=== PATIENT | male | born 1960 | race Caucasian/White ===

== ENCOUNTER 2019-03-24 19:00 | Inpatient (IN) | payer MEDICAID ==
[~2019-03-24] VITALS: Ht 165.1 cm; Wt 80.7 kg
[2019-03-24 19:20] VITALS: BP 152/88
--- NOTE | 2019-03-24 19:35 | NUR ---
PT ARRVIED TO ED C/O URINARY FREQUNCY X 1 MONTH. PT STATES HE HAS LEG PAIN AND DESCRIBES IT CRAMPING FEELING. NO RESP DISTRESS NOTED. A & O X 4. SKIN IN DRY AND INTACT. PT STATES HES HOMELESS AND HE HASNT TAKEN ANY MEDICATION FOR HIS [place] HX IN OVER A YEAR. STEADY GAIT. DENIES ANY DYSURIA OR BLOOD IN URINE. BS WAS OVER 600 AND MD IS AWARE. VSS NKA. PMH: DM,HTN.
[2019-03-24] MEDS ORDERED: NACL 0.9% 1,000 ML IV SCH (19:48)
--- NOTE | 2019-03-24 20:11 | NUR ---
XR AT BEDSIDE.
--- NOTE | 2019-03-24 20:18 | NUR ---
Dr. Chappell examining patient.
[2019-03-24 20:29] LABS: BASOPHILS # (AUTO) 0.1 K/uL (0.00-0.22); EOSINOPHILS # (AUTO) 0.1 K/uL (0-0.4); EOSINOPHILS % (AUTO) 1.1 % (0.0-4.0); HEMATOCRIT 40.5 % (36-52); HEMOGLOBIN 13.3 g/dL (12.0-18.0); LYMPHOCYTES # (AUTO) 1.9 K/uL (2.0-11.5); LYMPHOCYTES % (AUTO) 37.7 % (20.5-51.1); MEAN CORPUSCULAR HEMOGLOBIN 29 pg (27-31); MEAN CORPUSCULAR HGB CONC 33 g/dL (33-37); MEAN CORPUSCULAR VOLUME 87.1 fL (80-94); MONOCYTES # (AUTO) 0.3 K/uL (0.8-1.0); MONOCYTES % (AUTO) 6.1 % (1.7-9.3); NEUTROPHILS # (AUTO) 2.8 K/uL (1.8-7.7); NEUTROPHILS % (AUTO) 54.1 % (42.2-75.2); PLATELET COUNT (AUTO) 225 K/uL (140-450); RED BLOOD CELL COUNT(AUTO) 4.65 MIL/uL (4.20-6.10); RED CELL DISTRIBUTION WIDTH 12.9 % (11.6-13.7); WHITE BLOOD COUNT (AUTO) 5.2 K/uL (4.8-10.8)
[2019-03-24] MEDS ORDERED: cefTRIAXone 1,000 MG VIAL ONE (21:04)
[2019-03-24 21:14] LABS: ALBUMIN 3.5 g/dL (3.4-5.0); ANION GAP 13.5 (8-16); CARBON DIOXIDE 24.6 mmol/L (21-32); CREATININE 1.4 mg/dL (0.7-1.3); POTASSIUM 4.1 mmol/L (3.5-5.1); TOTAL BILIRUBIN 0.4 mg/dL (0.0-1.0)
[2019-03-24] MEDS ORDERED: INSULIN REGULAR, HUMAN 100 UNIT/ML VIAL IV ONE (21:40)
[2019-03-24 21:57] LABS: APPEARANCE,URINE CLEAR (CLEAR); BILIRUBIN,URINE NEGATIVE (NEGATIVE); BLOOD, URINE NEGATIVE (NEGATIVE); COLOR,URINE YELLOW (YELLOW); LEUKOCYTE ESTERASE ,URINE NEGATIVE (NEGATIVE); NITRITE, URINE NEGATIVE (NEGATIVE); PH,URINE 5.5 (5.0-9.0); UGLUCOSE NEGATIVE (NEGATIVE)
[2019-03-24] MEDS: NACL 0.9% 1,000 ML IV SCH (22:09)
[2019-03-24] MEDS ORDERED: MORPHINE SULFATE 2 MG/ML SYR IVP PRN (22:10)
[2019-03-24] MEDS ORDERED: DOCUSATE SODIUM 100 MG GELCAP PO PRN (22:10)
[2019-03-24] MEDS ORDERED: LORazepam 2 MG/ML VIAL IM/IVP PRN (22:10)
[2019-03-24] MEDS ORDERED: ZOLPIDEM 5 MG TAB PO PRN (22:10)
[2019-03-24] MEDS ORDERED: ACETAMINOPHEN 325 MG TAB PO PRN (22:10)
[2019-03-24] MEDS ORDERED: ONDANSETRON 4 MG/2 ML VIAL IM/IVP PRN (22:10)
[2019-03-24] MEDS ORDERED: DEXTROSE 50% 50 ML SYR IVP PRN (22:25)
[2019-03-24 22:30] VITALS: BP 140/90
--- NOTE | 2019-03-24 22:30 | NUR ---
Patient will be admitted to care of DR. COLÓN. Admited to TELE. Will go to room 111B. Belongings list completed. Report to SHAVON JUAN.
--- NOTE | 2019-03-24 22:30 | NUR ---
RCIEVED PT FROM ER/ BLACK . AAOX4 , NID , IV SITE INTACT AND PATENT , WALK TO BED , C/O URINARY FREQUENCY AND THRIST AND LEG CRAMPS AND SLIGHTLY PAIN . PLAN OF CARE DISCUSSED AND VERBALIZE UNDERSTANDING - CALL LIGHT WITHIN REACH . FALL RISK - PUT ON SAFETY/FALL PRECAUTION PROTOCOL . URINAL PROVIDED . ADMISSION ASSESSMENT DONE . MRSA SPECIMEN COLLECTED AND SENT TO LAB. WILL CONT. TO MONITOR.
[2019-03-24 22:42] LABS: MAGNESIUM 1.7 mg/dL (1.8-2.4); PHOSPHORUS 3.2 mg/dL (2.5-4.9); THYROID STIMULATING HORMONE 0.68 uIU/mL (0.34-3.74)
[2019-03-24 22:51] LABS: BARBITURATE, URINE NEG. ng/ml (NEG <=200); BENZODIAZEPINE, URINE NEG. ng/mL (NEG <=200); CANNABINOID, URINE NEG. ng/mL (NEG <=50); COCAINE, URINE NEG. ng/mL (NEG <=300); OPIATE, URINE NEG. ng/mL (NEG <=2000); PHENCYCLIDINE SCREEN,URINE NEG. ng/mL (NEG <=25)
--- NOTE | 2019-03-24 23:00 | NUR ---
PROVIDED SPUTUM CUP AND ADVISED PATIENT OF PURPOSE AND WHEN SPUTUM PROVIDED TO ADVISE NURSE IMMEDIATELY.
[2019-03-24] MEDS ORDERED: AZITHROMYCIN 250 MG TAB PO SCH (23:05)
[2019-03-25] MEDS: HYDROcodone/APAP 5/325 MG 1 TAB TAB PO PRN ×2 (00:10→17:06)
[2019-03-25] MEDS: metroNIDAZOLE 500 MG/NS PREMIX 100 ML IV SCH ×2 (00:57→06:10)
[2019-03-25] MEDS ORDERED: MAGNESIUM OXIDE 400 MG TAB PO SCH ×2 (02:00→08:30)
[2019-03-25] MEDS ORDERED: GLIP5TAB4 PO (02:55)
[2019-03-25] MEDS ORDERED: METF1000 PO (02:55)
--- NOTE | 2019-03-25 03:00 | NUR ---
HGT RE CHECK 333 - NO SIGNS OF ACUTE DISTRESS NOTED AT THIS TIME , WILL CONT. TO MONITOR.
[2019-03-25 04:00] VITALS: BP 140/85
--- NOTE | 2019-03-25 04:00 | NUR ---
NO ACUTE DISTRESS NOTED AT THIS TIME . CALL LIGHT WITHIN REACH.
[2019-03-25] MEDS ORDERED: metroNIDAZOLE 500 MG/NS PREMIX 100 ML IV SCH (05:00)
[2019-03-25] MEDS: BLOOD GLUCOSE MONITORING 1 DEV DEV FS SCH ×4 (06:17→20:19)
[2019-03-25] MEDS: INSULIN LISPRO SLIDING SCALE 100 UNITS/ML VIAL SUBQ PRN ×4 (06:23→20:21)
--- NOTE | 2019-03-25 06:30 | NUR ---
TO X [facility] DEPT . INSTALLATION AND SERVICE TECHNICIAN BY RADIOLOGIST - FOR REPEAT CXR .
--- NOTE | 2019-03-25 07:10 | NUR ---
ENDORSED TO AM SHIFT , WITH STABLE CONDITION. WITH LATEST HGT 315.
[2019-03-25 07:11] LABS: BASOPHILS % (AUTO) 0.7 % (0.0-2.0); EOSINOPHILS # (AUTO) 0.1 K/uL (0-0.4); EOSINOPHILS % (AUTO) 1.9 % (0.0-4.0); HEMATOCRIT 39.1 % (36-52); HEMOGLOBIN 13.1 g/dL (12.0-18.0); LYMPHOCYTES # (AUTO) 2.7 K/uL (2.0-11.5); MEAN CORPUSCULAR HEMOGLOBIN 29 pg (27-31); MEAN CORPUSCULAR HGB CONC 33 g/dL (33-37); MONOCYTES # (AUTO) 0.3 K/uL (0.8-1.0); MONOCYTES % (AUTO) 5.8 % (1.7-9.3); NEUTROPHILS # (AUTO) 2.8 K/uL (1.8-7.7); NEUTROPHILS % (AUTO) 46.6 % (42.2-75.2); PLATELET COUNT (AUTO) 193 K/uL (140-450); RED BLOOD CELL COUNT(AUTO) 4.55 MIL/uL (4.20-6.10); RED CELL DISTRIBUTION WIDTH 12.7 % (11.6-13.7)
--- NOTE | 2019-03-25 07:15 | NUR ---
RECEIVED PT FROM NIGHT NURSE. PT LYING IN BED AWAKE, AAOX4. NO DISTRESS NOTED. DENIES PAIN AT THIS TIME. RESPIRATIONS EVEN AND UNLABORED ON ROOM AIR. CLEAR BREATH SOUNDS. PT REPORTED PENIS SKIN CRACK ON PENIS, BUT REFUSED PHOTOGRAPH. IV IN PLACE PATENT AND ASYMPTOMATIC INFUSING PER ORDER IN R AC 20G. BED IN LOW POSITION. SAFETY MEASURES IN PLACE. CALL LIGHT WITHIN REACH. WILL CONTINUE TO MONITOR.
[2019-03-25 07:19] LABS: ANION GAP 13.3 (8-16); CARBON DIOXIDE 25.2 mmol/L (21-32); CREATININE 0.8 mg/dL (0.7-1.3); POTASSIUM 4.5 mmol/L (3.5-5.1)
[2019-03-25 08:00] VITALS: BP 129/73
[2019-03-25] MEDS ORDERED: metFORMIN 500 MG TAB PO SCH ×2 (08:00→17:00)
[2019-03-25] MEDS: NACL 0.9% 1,000 ML IV SCH ×2 (08:09→19:50)
--- NOTE | 2019-03-25 08:17 | NUR ---
PATIENT HAS BEEN SCREENED AND CATEGORIZED HIGH NUTRITION RISK. PATIENT WILL BE SEEN WITHIN 1-2 DAYS OF ADMISSION. 03/25/19-03/26/[address]
[2019-03-25] MEDS ORDERED: LACTOBACILLUS RHAMNOSUS GG 1 EACH CAP PO SCH (09:00)
[2019-03-25] MEDS ORDERED: INSULIN LANTUS 100 UNITS/ML 10 ML VIAL SUBQ SCH (09:00)
[2019-03-25] MEDS: LISINOPRIL 5 MG TAB PO SCH (09:04)
--- NOTE | 2019-03-25 09:15 | NUR ---
MEDICATIONS ADMINISTERED PER ORDER. PT TOLERATED WELL. DENIES PAIN. WILL CONTINUE TO MONITOR.
--- NOTE | 2019-03-25 10:51 | NUR ---
BLOOD GLUCOSE MONITORED AT THIS TIME. 8 UNITS OF INSULIN COVERAGE GIVEN. NO DISTRESS NOTED. PT DENIES PAIN. WILL CONTINUE TO MONITOR.
--- NOTE | 2019-03-25 11:44 | NUR ---
03/25/19 RD INITIAL ASSESSMENT COMPLETED PLEASE REFER TO NUTRITION ASSESSMENT UNDER CARE ACTIVITY FOR ESTIMATED NUTRITIONAL NEEDS. 1. CONTINUE [facility] DIET TOLERATED 2. RECOMMEND GLUCERNA BID 3. NUTRITION EDUCATION ON DM-II WAS GIVEN 4. GLUCERNA/ENSURE COUPONS WERE LEFT ON TABLE FOR PATIENT 5. RD TO FOLLOW-UP 5-7 DAYS, LOW RISK BECCA ADAM, RD
[2019-03-25 12:00] VITALS: BP 125/71
--- NOTE | 2019-03-25 12:04 | NUR ---
Rn Labor Delivery Assessment/Discharge Plan User: Darby HUFF Date: 03/25/19 11:48 Type: CM: Discharge Planning Name: Katherin Marinelli Relationship: friend Pre-Admission Living Arrangements: Other Other: car Healthcare Decision Maker: Patient Tentative Discharge Plan Summary: Patient is 58 year old male with PMHx DMT2, HTN, HLD, RA and onychomycosis. I met with patient at bedside. Patient was uncooperative during assessment/discharge plan. The information he provided me with was very limited. He did not provide me with his friend Katherin's phone number. He did not disclose if he has family members. He lives in his car and receives $221 from Heidi Shaulis. He goes to [facility] for medical care. He does not recall name of his pcp. He denied alcohol/substance abuse. He also denied hx of mental health. He refused to provide with additional information. He told me to "leave him alone, and to davin all 'nos" on paper". He refused community resources. Rn Labor Delivery and/or Assistant In Nursing will follow up as needed. Signature: ANDREY Sykes Date: Mar 25, 2019
--- NOTE | 2019-03-25 14:05 | NUR ---
DC PLANNING: PT 58 YRS OLD MALE CAME FROM HOME ADMITTED WITH THE DX OF HYPERGLYCEMIA AND PNEUMONIA BS 716 ON ADMISSION REGULAR INSULIN 10 UNITS GIVEN, IVF NS AT 100 , IV ABX ROCEPHIN AND FLAGYL 500 MG [id number] ORDERED . D/C PLAN REPEAT CXRAY , FNS CONSULT NO NEEDS FOR ADL'S MOST LIKELY TO GO HOME UPON DISCHARGE. Addendum: 03/26/19 at 1120 by Aleksandra Mireles CM DC PLAN DISCHARGE HOME WITH NO NEEDS , TO CONTINUE HOME MEDS AND TO F/U WITH PCP WITH IN 3-5 DAYS
--- NOTE | 2019-03-25 15:52 | NUR ---
MEDICATIONS ADMINISTERED PER ORDER. PT TOLERATED WELL. NO DISTRESS NOTED. WILL CONTINUE TO MONITOR.
[2019-03-25 16:00] VITALS: BP 120/70
[2019-03-25] MEDS ORDERED: GABAPENTIN 300 MG CAP PO SCH (17:00)
[2019-03-25] MEDS: metFORMIN 500 MG TAB PO SCH (17:06)
--- NOTE | 2019-03-25 17:36 | NUR ---
PT REQUESTS HAM SANDWICH. NO DISTRESS NOTED. DENIES PAIN AT THIS TIME. WILL CONTINUE TO MONITOR.
--- NOTE | 2019-03-25 19:05 | NUR ---
BEDSIDE REPORT GIVEN TO NIGHT NURSE FOR CONTINUITY OF CARE.
--- NOTE | 2019-03-25 19:06 | NUR ---
RECEIVED ENDORSEMENT FROM AM SHIFT NURSE IN STABLE CONDITION. PATIENT ALERT AND ORIENTED X4. INTRODUCED SELF AND UPDATED BOARD. DENIES PAIN NOR DISCOMFORT. BEDBOUND. URINAL AT BEDSIDE. IV ON RIGHT AC RUNNING IVF. FALL PRECAUTIONS OBSERVED. BED ON LOW POSITION. BED ALARM ON. CALL LIGHT WITHIN REACH. WILL CONTINUE TO MONITOR.
[2019-03-25 20:00] VITALS: BP 115/74
--- NOTE | 2019-03-25 20:45 | NUR ---
PATIENT ASLEEP IN BED. NO DISTRESS NOTED. VISIBLE CHEST RISE AND FALL NOTED. WILL CONTINUE TO MONITOR.
[2019-03-25] MEDS ORDERED: ATORVASTATIN 20 MG TAB PO SCH (21:00)
[2019-03-25] MEDS ORDERED: SIMVASTATIN 10 MG TAB PO SCH (21:00)
--- NOTE | 2019-03-25 21:00 | NUR ---
DUE MEDICATIONS GIVEN. DENIES PAIN NOR DISCOMFORT. BED ALARM ON. BED IN LOW POSITION. CALL LIGHT WITHIN REACH. WILL CONTINUE TO MONITOR.
--- NOTE | 2019-03-25 23:55 | NUR ---
ROUNDS DONE. PATIENT ASLEEP. NO DISTRESS NOTED. VISIBLE CHEST RISE AND FALL NOTED. BED ALARM ON. BED ON LOW POSITION. CALL LIGHT WITHIN REACH. WILL CONTINUE TO MONITOR.
[2019-03-26] VITALS: BP 119/67
--- NOTE | 2019-03-26 01:50 | NUR ---
CHECKS DONE. PATIENT ASLEEP IN BED. VISIBLE CHEST RISE AND FALL NOTED. BED ALARM ON. BED IN LOW POSITION. CALL LIGHT WITHIN REACH. WILL CONTINUE TO MONITOR.
--- NOTE | 2019-03-26 02:42 | NUR ---
ROUNDS DONE. PATIENT ASLEEP IN BED. NO APPARENT DISTRESS NOTED. BED ALARM ON. BED IN LOW POSITION. CALL LIGHT WITHIN REACH. WILL CONTINUE TO MONITOR.
[2019-03-26] MEDS: HYDROcodone/APAP 5/325 MG 1 TAB TAB PO PRN (03:02)
[2019-03-26 04:00] VITALS: BP 105/66
[2019-03-26] MEDS: NACL 0.9% 1,000 ML IV SCH (04:38)
--- NOTE | 2019-03-26 04:40 | NUR ---
PATIENT ASLEEP IN BED. NO SIGNS AND SYMPTOMS OF RESPIRATORY DISTRESS NOTED. NO SOB. VISIBLE CHEST RISE AND FALL NOTED. BED ON LOW POSITION. BED ALARM ON. CALL LIGHT WITHIN REACH. WILL CONTINUE TO MONITOR.
[2019-03-26] MEDS: BLOOD GLUCOSE MONITORING 1 DEV DEV FS SCH (05:50)
[2019-03-26] MEDS: INSULIN LISPRO SLIDING SCALE 100 UNITS/ML VIAL SUBQ PRN (05:51)
--- NOTE | 2019-03-26 06:34 | NUR ---
DUE MEDICATION GIVEN ORDERED. WILL ENDORSE TO AM SHIFT.
[2019-03-26 06:57] LABS: BASOPHILS % (AUTO) 0.8 % (0.0-2.0); EOSINOPHILS # (AUTO) 0.1 K/uL (0-0.4); EOSINOPHILS % (AUTO) 1.5 % (0.0-4.0); HEMATOCRIT 39.1 % (36-52); LYMPHOCYTES # (AUTO) 2.9 K/uL (2.0-11.5); LYMPHOCYTES % (AUTO) 48.9 % (20.5-51.1); MEAN CORPUSCULAR HEMOGLOBIN 29 pg (27-31); MEAN CORPUSCULAR HGB CONC 33 g/dL (33-37); MEAN CORPUSCULAR VOLUME 86.9 fL (80-94); MONOCYTES # (AUTO) 0.4 K/uL (0.8-1.0); MONOCYTES % (AUTO) 6.1 % (1.7-9.3); NEUTROPHILS # (AUTO) 2.5 K/uL (1.8-7.7); NEUTROPHILS % (AUTO) 42.7 % (42.2-75.2); PLATELET COUNT (AUTO) 208 K/uL (140-450); RED BLOOD CELL COUNT(AUTO) 4.49 MIL/uL (4.20-6.10); RED CELL DISTRIBUTION WIDTH 13.1 % (11.6-13.7); WHITE BLOOD COUNT (AUTO) 5.8 K/uL (4.8-10.8)
[2019-03-26 07:05] LABS: ANION GAP 13.9 (8-16); CARBON DIOXIDE 24.3 mmol/L (21-32); CREATININE 0.7 mg/dL (0.7-1.3); POTASSIUM 4.2 mmol/L (3.5-5.1)
--- NOTE | 2019-03-26 07:10 | NUR ---
RECEIVED REPORT FROM NIGHT NURSE. PT IN BED WITH EYES CLOSED, AROUSABLE TO SPEECH, AAOX4. RESPIRATIONS EVEN AND UNLABORED ON ROOM AIR. NO DISTRESS NOTED. DENIES PAIN. IV IN PLACE R AC 22G INFUSING PER ORDER, PATENT AND ASYMPTOMATIC. ESCORIATIONS ON PENIS. BED IN LOW POSITION. SAFETY MEASURES IN PLACE. CALL LIGHT WITHIN REACH. WILL CONTINUE TO MONITOR.
[2019-03-26 07:14] LABS: MAGNESIUM 1.4 mg/dL (1.8-2.4)
[2019-03-26] MEDS ORDERED: glipiZIDE 5 MG TAB PO SCH (07:30)
[2019-03-26] MEDS ORDERED: MAG SULF 2000 MG/WATER PREMIX 100 ML IV SCH (09:00)
[2019-03-26] MEDS: LISINOPRIL 5 MG TAB PO SCH (09:35)
[2019-03-26] MEDS: metFORMIN 500 MG TAB PO SCH (09:35)
[2019-03-26] MEDS ORDERED: GABA-638 PO (09:58)
[2019-03-26] MEDS ORDERED: GLIP5TAB13 PO (09:58)
[2019-03-26] MEDS ORDERED: ATOR20TA40 PO (09:58)
[2019-03-26] MEDS ORDERED: METF500T PO (09:58)
[2019-03-26] MEDS ORDERED: LISI-424 PO (09:58)
[2019-03-26] MEDS ORDERED: LANC1COM MC (10:00)
[2019-03-26] MEDS ORDERED: BLOO1EAC40 MC (10:00)
[2019-03-26] MEDS ORDERED: SITA100T8 PO (10:00)
[2019-03-26 11:35] VITALS: BP 146/92
--- NOTE | 2019-03-26 11:52 | NUR ---
PT DISCHARGED AT THIS TIME IN STABLE CONDITION. PT WAS IMPATIENT AND LEFT THE UNIT WITHOUT BEING PROPERLY DISCHARGED. PT RETRIEVED MY MOHAMMED. DISCHARGE AND FOLLOWUP TEACHINGS GIVEN. DISCHARGE PAPERWORK SIGNED. IV REMOVED WITH MINIMAL BLOOD LOSS AND LUMEN INTACT. RESPIRATIONS EVEN AND UNLABORED. PT LEFT IN PRIVATE VEHICLE ACCOMPANIED BY SIGNIFICANT OTHER. ESCORTED OFF UNIT ON FOOT.
[2019-03-26] MEDS ORDERED: INSULIN LANTUS 100 UNITS/ML 10 ML VIAL SUBQ SCH (21:00)
[2019-03-26] MEDS ORDERED: AZITHROMYCIN 250 MG TAB PO SCH (21:00)
== END 2019-03-26 11:50 | disposition home or self-care (01) | DRG 469 ==
LOC: MED 19:00 → MTU 21:49
PROVIDERS: ADMIT General Practice; ATTEND General Practice
DX: N17.0 Acute kidney failure with tubular necrosis (principal); E11.00 Type 2 diabetes mellitus with hyperosmolarity without nonketotic hyperglycemic-hyperosmolar coma (NKHHC); J69.0 Pneumonitis due to inhalation of food and vomit; E87.1 Hypo-osmolality and hyponatremia; E11.21 Type 2 diabetes mellitus with diabetic nephropathy; E86.0 Dehydration; E83.42 Hypomagnesemia; E11.65 Type 2 diabetes mellitus with hyperglycemia; J98.11 Atelectasis; I10 Essential (primary) hypertension; E78.5 Hyperlipidemia, unspecified; M06.9 Rheumatoid arthritis, unspecified; Z83.3 Family history of diabetes mellitus; Z83.2 Family history of diseases of the blood and blood-forming organs and certain disorders involving the immune mechanism; Z82.3 Family history of stroke; Z84.89 Family history of other specified conditions
CPT/HCPCS: 36415; 36600; 71045; 71046; 80048; 80053; 80305; 81003; 82948; 83036; 83690; 83735; 83880; 84100; 84134; 84443; 84484; 85025; 85610; 85730; 87040; 87070; 87081; 87205; 93005; 96361; 96365; 96372; 99285; J0696; J1644; J1815; J2270; J3475; J3490; J7030; Q0092

== ENCOUNTER 2020-08-15 18:40 | Emergency (ER) | payer MEDICAID ==
[~2020-08-15] VITALS: Ht 165.1 cm; Wt 77.1 kg
[~2020-08-15 18:40] MED LIST: ATOR20TA40 PO; BLOO1EAC40 MC; GABA-638 PO; GLIP5TAB13 PO; LANC1COM MC; LISI-648 PO; METF1000 PO; SITA100T8 PO
[2020-08-15 18:58] VITALS: BP 157/61
--- NOTE | 2020-08-15 19:48 | NUR ---
PT TAKEN TO BED 8
--- NOTE | 2020-08-15 20:03 | NUR ---
Ioana ybarra in [facility] - 08/15/20 at [address] Candelario examining patient.
[2020-08-15 20:50] VITALS: BP 157/61
--- NOTE | 2020-08-15 20:50 | NUR ---
PATIENT LEFT WITHOUT BEING SEEN BY DR. CACERES. NO FURTHER CARE PROVIDED FOR PATIENT.
== END 2020-08-15 20:50 | disposition left against medical advice (07) ==
LOC: MED 18:40
DX: M79.673 Pain in unspecified foot (principal); Z53.21 Procedure and treatment not carried out due to patient leaving prior to being seen by health care provider

== ENCOUNTER 2022-11-01 01:50 | Inpatient (IN) | payer MEDICAID ==
[~2022-11-01] VITALS: Ht 165.1 cm; Wt 76.7 kg
[2022-11-01] VITALS (11 sets, daily range): BP systolic 118–137; BP diastolic 75–90; PULSE 63–99; RESP 16–18; TEMP 97.1–97.7; O2SAT 95–98
[~2022-11-01 01:50] MED LIST changes: -LISI-648 PO; +LISI5TAB24 PO; +METF-1274 PO; -METF1000 PO
--- NOTE | 2022-11-01 01:55 | NUR ---
TO BED AMBULATORY
--- NOTE | 2022-11-01 02:07 | NUR ---
DR VALDOVINOS AT BEDSIDE
[2022-11-01] MEDS ORDERED: FUROSEMIDE 20 MG/2 ML VIAL IVP ONE (02:20)
--- NOTE | 2022-11-01 02:32 | NUR ---
BED SIDE X-RAY PERFORMED.
[2022-11-01 02:37] LABS: BASOPHILS # (AUTO) 0.1 K/uL (0.00-0.22); EOSINOPHILS # (AUTO) 0.1 K/uL (0-0.4); EOSINOPHILS % (AUTO) 1.3 % (0.0-4.0); HEMATOCRIT 46.8 % (36-52); HEMOGLOBIN 15.6 g/dL (12.0-18.0); LYMPHOCYTES # (AUTO) 1.8 K/uL (2.0-11.5); LYMPHOCYTES % (AUTO) 31.4 % (20.5-51.1); MEAN CORPUSCULAR HEMOGLOBIN 29 pg (27-31); MEAN CORPUSCULAR HGB CONC 33 g/dL (33-37); MEAN CORPUSCULAR VOLUME 87.1 fL (80-94); MONOCYTES # (AUTO) 0.5 K/uL (0.8-1.0); MONOCYTES % (AUTO) 8.4 % (1.7-9.3); NEUTROPHILS # (AUTO) 3.3 K/uL (1.8-7.7); NEUTROPHILS % (AUTO) 57.9 % (42.2-75.2); PLATELET COUNT (AUTO) 218 K/uL (140-450); RED BLOOD CELL COUNT(AUTO) 5.38 MIL/uL (4.20-6.10); RED CELL DISTRIBUTION WIDTH 14.5 % (11.6-13.7); WHITE BLOOD COUNT (AUTO) 5.7 K/uL (4.8-10.8)
[2022-11-01 02:56] LABS: ALBUMIN 2.5 g/dL (3.4-5.0); ANION GAP 9.8 (8-16); CARBON DIOXIDE 29.9 mmol/L (21-32); POTASSIUM 4.7 mmol/L (3.5-5.1); TOTAL BILIRUBIN 0.6 mg/dL (0.0-1.0)
[2022-11-01 02:59] LABS: LIPASE 36 U/L (73-393)
--- NOTE | 2022-11-01 03:11 | NUR ---
CRITICAL VALUES WERE OBTAINED BY HYPOID GEAR TESTERChavo PLEITEZ. GLUCOSE 416 AND TROP 108. PER HYPOID GEAR TESTER, DOCTOR VALDOVINOS WAS MADE AWARE.
[2022-11-01] MEDS ORDERED: ASPIRIN 325 MG TAB PO ONE (03:20)
--- NOTE | 2022-11-01 03:26 | NUR ---
UA SENT TO THE LAB. PT STARTING TO DIURES. URINE IS LIGHT CLEAR YELLOW.
[2022-11-01 03:29] LABS: APPEARANCE,URINE CLEAR (CLEAR); BILIRUBIN,URINE NEGATIVE (NEGATIVE); BLOOD, URINE 1+ (NEGATIVE); COLOR,URINE YELLOW (YELLOW); LEUKOCYTE ESTERASE ,URINE NEGATIVE (NEGATIVE); NITRITE, URINE NEGATIVE (NEGATIVE); UGLUCOSE 3+ (NEGATIVE)
--- NOTE | 2022-11-01 03:29 | NUR ---
DR. VALDOVINOS IS AT INFORMING THE PT THAT HIS FLUID RETENTION IS DUE TO HIS HEART. HE INFORMED HIM THAT HE WOULD BE ADMITTED INTO THE HOSPITAL FOR A FEW DAYS TO HELP DECREASE HIS LOWER EXTREMITY EDEMA.
--- NOTE | 2022-11-01 03:30 | NUR ---
Dr. Felix examining patient.
[2022-11-01 03:35] LABS: RBC,URINE 0-5 /HPF (0-5)
[2022-11-01 03:39] LABS: BARBITURATE, URINE NEGATIVE ng/ml (NEG <=200); BENZODIAZEPINE, URINE NEGATIVE ng/mL (NEG <=200); CANNABINOID, URINE NEGATIVE ng/mL (NEG <=50); COCAINE, URINE NEGATIVE ng/mL (NEG <=300); OPIATE, URINE NEGATIVE ng/mL (NEG <=2000); PHENCYCLIDINE SCREEN,URINE NEGATIVE ng/mL (NEG <=25)
--- NOTE | 2022-11-01 04:03 | NUR ---
COVID SWAB SENT TO LAB.
--- NOTE | 2022-11-01 04:06 | NUR ---
COVID SWAB COLLECTED AND SENT
[2022-11-01] MEDS ORDERED: INSULIN REGULAR, HUMAN 100 UNIT/ML VIAL SUBQ ONE (04:55)
--- NOTE | 2022-11-01 05:31 | NUR ---
PT MEDICATED WITH INSULIN ORDERED.
--- NOTE | 2022-11-01 05:59 | NUR ---
PT SLEEPING WITHOUT DISTRESS. CURRENTLY AWAITING TO BE ADMITTED. AWAITING FOR ADMISSION.
--- NOTE | 2022-11-01 06:06 | NUR ---
PT'S GIRLFRIEND ARRIVED AND IS AT BS.
[2022-11-01] MEDS ORDERED: MAG SULF 2000 MG/WATER PREMIX 50 ML IV ONE (06:25)
[2022-11-01] MEDS ORDERED: HYDROcodone/APAP 5/325 MG 1 TAB TAB PO PRN ×2 (06:40)
[2022-11-01] MEDS ORDERED: ONDANSETRON 4 MG/2 ML VIAL IVP PRN (06:40)
[2022-11-01] MEDS ORDERED: DEXTROSE 50% 50 ML SYR IVP PRN (06:40)
--- NOTE | 2022-11-01 06:52 | NUR ---
PT LAYING IN HIGH-SPRING'S POSITION. LAYING IN BED TALKING TO HIS GIRLFRIEND. PT WAITING TO BE ASSIGNED A TELE ROOM. PT'S GIRLFRIEND REMAINS AT BS.
[2022-11-01] MEDS: INSULIN LANTUS 100 UNITS/ML 10 ML VIAL SUBQ SCH (07:00)
[2022-11-01] MEDS: INSULIN LISPRO 100 UNITS/ML VIAL SUBQ SCH ×3 (07:30→16:30)
[2022-11-01] MEDS: BLOOD GLUCOSE MONITORING 1 DEV DEV FS SCH ×4 (07:30→20:23)
--- NOTE | 2022-11-01 07:35 | NUR ---
RECEIVED PT FROM SHAVON POZO. PATIENT PRESENTS TO ED WITH CHF . PT STATES HE HAS BEEN OFF HIS MEDICATION FOR AT LEAST 6 MONTHS. PT STATES HE HAS PAIN IN HIS LOWER EXTREMITIES AND THE PAIN IS WORSE IN HIS FEET. SKIN IS PINK/WARM/DRY; AAOX4 PT USES A WALKER FOR AMBULATION; LUNGS CLEAR BL; HR EVEN AND REGULAR; PT DENIES ANY FEVER, CP, SOB, OR COUGH AT THIS TIME; PATIENT STATES PAIN OF 9/10 AT THIS TIME; VSS; PATIENT POSITIONED FOR COMFORT; HOB ELEVATED; BEDRAILS UP X2; BED DOWN. ER MD MADE AWARE OF PT STATUS. WILL MEDICATE PER PROVIDERS ORDERS. PT IS WAITING TO BE TRANSFERED TO [facility].
[2022-11-01] MEDS: ENOXAPARIN 40 MG/0.4 ML SYR SUBQ SCH (08:38)
--- NOTE | 2022-11-01 08:45 | NUR ---
PATIENT HAS BEEN SCREENED AND CATEGORIZED MODERATE NUTRITION RISK. PATIENT WILL BE SEEN WITHIN 3-5 DAYS OF ADMISSION. 11/04/22-11/06/[address]
--- NOTE | 2022-11-01 08:45 | NUR ---
PT WITH REGISTRAR ASSISTANT AT BEDSIDE. PER ECHO PT HAS BELOW 20 EJECTION FRACTION RATE. PT TROPONIN LEVEL TRENDING DOWN 6 POINTS AT 102 PER LAB. MD MADE AWARE AND CRITICAL VALUE CHARTED.
[2022-11-01] MEDS: INSULIN LISPRO SLIDING SCALE 100 UNITS/ML VIAL SUBQ PRN ×2 (08:50→20:24)
[2022-11-01] MEDS ORDERED: FUROSEMIDE 40 MG/4 ML VIAL IVP SCH (09:00)
[2022-11-01] MEDS ORDERED: FUROSEMIDE 20 MG/2 ML VIAL IVP SCH (09:00)
--- NOTE | 2022-11-01 10:50 | NUR ---
PT ARRIVED IN THE UNIT FROM ER AND REORIENTED THE HOSPITAL ROOM , ASSESSMENT AND V.S OBTAINED PT STABLE [id number]
--- NOTE | 2022-11-01 11:03 | NUR ---
Pt has been transfered to room number 111 A in [facility] on Tele. Report given to SHAVON Amaya. Pt tolerated transfer well. Care plan explained to pt.
--- NOTE | 2022-11-01 11:08 | NUR ---
The patient's care was reviewed and supervised by Cumming 05 ARTURO, RN.
[2022-11-01] MEDS: GABAPENTIN 300 MG CAP PO SCH (17:45)
[2022-11-01] MEDS: acetaZOLAMIDE sodium 500 MG VIAL IVP SCH (18:52)
--- NOTE | 2022-11-01 19:24 | NUR ---
gave report to the night nurse, pt has visitor at bedside, pt up sitting in chair.[email or web address]
--- NOTE | 2022-11-01 19:30 | NUR ---
RECEIVED REPORT FROM DAY RN FOR CONTINUITY OF CARE. PT IS AWAKE, ALERT AND ORIENTED X 4, room air, o2 sat,98%. BREATHING EVEN AND UNLABORED, NO S/SX OF RESPIRATORY DISTRESS. ALL PRECAUTIONS IN PLACE. CALL LIGHT WITHIN REACH. POC DISCUSSED.WILL CONTINUE TO MONITOR.
[2022-11-01] MEDS: FUROSEMIDE 40 MG/4 ML VIAL IVP SCH (20:16)
--- NOTE | 2022-11-01 21:00 | NUR ---
SCHEDULED MEDICATION GIVEN. PT TOLERATED WELL. WILL CONTINUE TO MONITOR.
[2022-11-02] VITALS (8 sets, daily range): BP systolic 116–149; BP diastolic 69–103; PULSE 64–104; RESP 18–20; TEMP 96.8–98.3; O2SAT 96–99
--- NOTE | 2022-11-02 02:45 | NUR ---
PT ASLEEP. BREATHING EVEN AND UNLABORED.NO S/SX OF DISTRESS NOTED. AURA LIGHT WITHIN REACH. WILL CONTINUE TO MONITOR.
[2022-11-02] MEDS: BLOOD GLUCOSE MONITORING 1 DEV DEV FS SCH ×4 (06:01→20:38)
[2022-11-02] MEDS: INSULIN LISPRO SLIDING SCALE 100 UNITS/ML VIAL SUBQ PRN ×4 (06:01→20:59)
--- NOTE | 2022-11-02 06:24 | NUR ---
PT IS STABLE. NO ACUTE EVENTS THROUGHOUT THE NIGHT. ALL NEEDS MET.NO S/SX OF DISTRESS AT THIS MOMENT. ALL PRECAUTIONS IN PLACE. CALL LIGHT WITHIN REACH. WILL CONTINUE TO MONITOR.
[2022-11-02] MEDS: INSULIN LISPRO 100 UNITS/ML VIAL SUBQ SCH ×3 (06:34→18:10)
--- NOTE | 2022-11-02 06:38 | NUR ---
BLOOD SUGAR WAS 215. INSULIN GIVEN PER SLIDING SCALE.
--- NOTE | 2022-11-02 07:05 | NUR ---
receive the patient from manufacturing shift supervisor tobi Diego in rm 111A with admitting diagnosis of leg , testicle swelling . on diuretics furosemide . acetazolamide . with good urine output afebrile . will continue to monitor
[2022-11-02 07:12] LABS: BASOPHILS # (AUTO) 0.1 K/uL (0.00-0.22); BASOPHILS % (AUTO) 0.7 % (0.0-2.0); EOSINOPHILS # (AUTO) 0.1 K/uL (0-0.4); HEMATOCRIT 47.4 % (36-52); HEMOGLOBIN 15.7 g/dL (12.0-18.0); LYMPHOCYTES # (AUTO) 1.6 K/uL (2.0-11.5); LYMPHOCYTES % (AUTO) 22.3 % (20.5-51.1); MEAN CORPUSCULAR HEMOGLOBIN 29 pg (27-31); MEAN CORPUSCULAR HGB CONC 33 g/dL (33-37); MEAN CORPUSCULAR VOLUME 87.4 fL (80-94); MONOCYTES # (AUTO) 0.6 K/uL (0.8-1.0); NEUTROPHILS # (AUTO) 4.7 K/uL (1.8-7.7); PLATELET COUNT (AUTO) 201 K/uL (140-450); RED BLOOD CELL COUNT(AUTO) 5.43 MIL/uL (4.20-6.10); RED CELL DISTRIBUTION WIDTH 14.7 % (11.6-13.7); WHITE BLOOD COUNT (AUTO) 7.2 K/uL (4.8-10.8)
[2022-11-02 07:25] LABS: ANION GAP 11.1 (8-16); POTASSIUM 4.1 mmol/L (3.5-5.1)
[2022-11-02] MEDS: ECOTRIN 81 MG TABEC PO SCH (08:39)
[2022-11-02] MEDS: FUROSEMIDE 40 MG/4 ML VIAL IVP SCH ×2 (08:39→20:39)
[2022-11-02] MEDS: ATORVASTATIN 20 MG TAB PO SCH (08:39)
[2022-11-02] MEDS: ENOXAPARIN 40 MG/0.4 ML SYR SUBQ SCH (08:40)
[2022-11-02] MEDS: acetaZOLAMIDE sodium 500 MG VIAL IVP SCH (08:41)
[2022-11-02] MEDS: INSULIN LANTUS 100 UNITS/ML 10 ML VIAL SUBQ SCH (08:43)
[2022-11-02] MEDS ORDERED: MAG SULF 2000 MG/WATER PREMIX 50 ML IV ONE (09:40)
--- NOTE | 2022-11-02 09:58 | NUR ---
magnesium level of 1.6 . md made aware . order magnesium 2000mg on 50 ml NS
--- NOTE | 2022-11-02 10:04 | NUR ---
patient transfer to medical surgical . discontinue the heart monitor
[2022-11-02] MEDS: GABAPENTIN 300 MG CAP PO SCH (18:10)
--- NOTE | 2022-11-02 19:08 | NUR ---
still for antibiotics therapy for swollen leg and testicles will endorse to evening or night nurse supervisor rn for continuity of care
--- NOTE | 2022-11-02 19:10 | NUR ---
RECEIVED REPORT FROM DAY SHIFT NURSE FOR CONTINUITY OF CARE. PATIENT IS AWAKE AT THIS TIME, FAMILY AT BEDSIDE. ALERT AND ORIENTED X4, AMBULATORY, AND CONTINENT. CURRENTLY ON ROOM AIR WITH NO APPARENT SIGNS OF ACUTE DISTRESS NOTED, LUNG SOUNDS CLEAR. IV SITE LOCATED TO LEFT HAND, INTACT AND PATENT. OVERALL SKIN IS INTACT. WHITEBOARD UPDATED, CALL LIGHT PLACED WITHIN REACH, SAFETY MEASURES IN PLACE. FAMILY AWARE OF POC FOR TONIGHT.
--- NOTE | 2022-11-02 20:00 | NUR ---
Patient's Plan of Care was discussed and reviewed with NAVARRO DENNIS
[2022-11-02] MEDS: carvediloL 3.125 MG TAB PO SCH (20:37)
--- NOTE | 2022-11-02 21:10 | NUR ---
SCHEDULED MEDICATIONS ADMINISTERED. PT BLOOD SUGAR OF 175. 2 UNITS OF HUMALOG ADMINISTERED, PT TOLERATED WELL, WILL CONTINUE TO MONITOR.
--- NOTE | 2022-11-03 00:38 | NUR ---
PATIENT RESTING COMFORTABLY. NO SIGNS OF DISTRESS NOTED,WILL CONTINUE TO MONITOR THE PATIENT.
[2022-11-03 04:00] VITALS: BP 117/75; PULSE 73; RESP 18; TEMP 97.7; O2SAT 96
--- NOTE | 2022-11-03 05:57 | NUR ---
PATIENT REMOVED IV SITE. NEW IV SITE PLACED ON RIGHT FOREARM, 22 GAUGE.
[2022-11-03] MEDS: BLOOD GLUCOSE MONITORING 1 DEV DEV FS SCH ×4 (06:33→20:27)
[2022-11-03] MEDS: INSULIN LISPRO 100 UNITS/ML VIAL SUBQ SCH ×3 (06:34→16:59)
--- NOTE | 2022-11-03 06:34 | NUR ---
BLOOD GLUCOSE CHECK = 71. HELD SCHEDULED HUMALOG INSULIN ADMINISTRATION PER PARAMETERS. NO ACUTE EVENTS OVER NIGHT, WILL ENDORSE TO DAY SHIFT NURSE IN STABLE CONDITION.
[2022-11-03 06:55] LABS: BASOPHILS # (AUTO) 0.1 K/uL (0.00-0.22); BASOPHILS % (AUTO) 0.7 % (0.0-2.0); EOSINOPHILS # (AUTO) 0.1 K/uL (0-0.4); EOSINOPHILS % (AUTO) 1.4 % (0.0-4.0); HEMATOCRIT 45.5 % (36-52); HEMOGLOBIN 15.1 g/dL (12.0-18.0); LYMPHOCYTES # (AUTO) 1.8 K/uL (2.0-11.5); LYMPHOCYTES % (AUTO) 25.7 % (20.5-51.1); MEAN CORPUSCULAR HEMOGLOBIN 29 pg (27-31); MEAN CORPUSCULAR HGB CONC 33 g/dL (33-37); MEAN CORPUSCULAR VOLUME 86.9 fL (80-94); MONOCYTES # (AUTO) 0.5 K/uL (0.8-1.0); MONOCYTES % (AUTO) 7.8 % (1.7-9.3); NEUTROPHILS # (AUTO) 4.6 K/uL (1.8-7.7); NEUTROPHILS % (AUTO) 64.4 % (42.2-75.2); PLATELET COUNT (AUTO) 219 K/uL (140-450); RED BLOOD CELL COUNT(AUTO) 5.24 MIL/uL (4.20-6.10); RED CELL DISTRIBUTION WIDTH 14.6 % (11.6-13.7); WHITE BLOOD COUNT (AUTO) 7.1 K/uL (4.8-10.8)
--- NOTE | 2022-11-03 07:13 | NUR ---
receive the patinet from the scene shifter rn in rm 111A aox4 with admitting diagnosis of leg , testicle swelling . will continue with iv antibiotics afebrile . no complain of pain at this time . will continue to monitor
[2022-11-03 07:16] LABS: ANION GAP 10.2 (8-16); CARBON DIOXIDE 28.4 mmol/L (21-32); CREATININE 0.9 mg/dL (0.6-1.3); POTASSIUM 3.6 mmol/L (3.5-5.1)
[2022-11-03 07:34] VITALS: PULSE 86; RESP 19; O2SAT 96
[2022-11-03 07:39] VITALS: PULSE 82; RESP 20; O2SAT 99
[2022-11-03 08:00] VITALS: BP 117/80; PULSE 87; RESP 20; TEMP 97.4; O2SAT 96
[2022-11-03] MEDS ORDERED: lisinopriL 5 MG TAB PO SCH (09:00)
[2022-11-03] MEDS: carvediloL 3.125 MG TAB PO SCH ×2 (09:43→20:27)
[2022-11-03] MEDS: ECOTRIN 81 MG TABEC PO SCH (09:43)
[2022-11-03] MEDS: ATORVASTATIN 20 MG TAB PO SCH (09:43)
[2022-11-03] MEDS: FUROSEMIDE 40 MG/4 ML VIAL IVP SCH ×2 (09:44→21:00)
[2022-11-03] MEDS: ENOXAPARIN 40 MG/0.4 ML SYR SUBQ SCH (09:45)
[2022-11-03] MEDS: acetaZOLAMIDE sodium 500 MG VIAL IVP SCH (09:47)
[2022-11-03] MEDS: INSULIN LANTUS 100 UNITS/ML 10 ML VIAL SUBQ SCH (09:48)
[2022-11-03 16:00] VITALS: BP 127/72; PULSE 79; RESP 19; TEMP 98.4; O2SAT 96
[2022-11-03] MEDS: INSULIN LISPRO SLIDING SCALE 100 UNITS/ML VIAL SUBQ PRN ×2 (17:01→20:38)
[2022-11-03] MEDS: GABAPENTIN 300 MG CAP PO SCH (17:02)
--- NOTE | 2022-11-03 17:54 | NUR ---
11/03/22 RD INITIAL ASSESSMENT COMPLETED. PLEASE REFER TO NUTRITION ASSESSMENT UNDER CARE ACTIVITY FOR ESTIMATED NUTRITIONAL NEEDS. 1. CONTINUE CARDIAC DIET TOLERATED 2. MONITOR PO INTAKE 3. RD TO FOLLOW-UP 3-5 DAYS MODERATE RISK EDGARDO PUENTES RD
--- NOTE | 2022-11-03 18:24 | NUR ---
will endorse to cook night rn fro continuity of care . still on antibiotics for leg ,testicle swelling
--- NOTE | 2022-11-03 18:27 | NUR ---
will endorse to shift nurse manager rn for continuity of care . still with antibiotics therapy for right leg swelling
--- NOTE | 2022-11-03 19:05 | NUR ---
RECEIVED BEDSIDE REPORT FROM DAY SHIFT NURSE. PT IS CURRENTLY EATING DINNER, FAMILY AT BEDSIDE. DISCUSSED POC WITH PATIENT AND FAMILY, CHECKED IV SITE FOR PATENCY. PATIENT STATES PAIN IN LOWER EXTREMITIES BUT IT IS TOLERABLE AND DOES NOT REQUIRE PAIN MEDICATION. STILL STABLE ON ROOM AIR. CALL LIGHT PLACED WITHIN REACH, SAFETY MEASURES IN PLACE.
[2022-11-03 20:00] VITALS: PULSE 82; RESP 18; O2SAT 96
--- NOTE | 2022-11-03 20:00 | NUR ---
Patient's Plan of Care was discussed and reviewed with NAVARRO BRITTON
--- NOTE | 2022-11-03 21:00 | NUR ---
PATIENTS BLOOD PRESSURE OF 100/61. COREG PO WAS HELD PER PARAMETERS. PATIENTS BLOOD GLUCOSE LEVEL = 226. 4 UNITS OF HUMALOG WAS ADMINISTERED, PT TOLERATED WELL. WILL CONTINUE TO MONITOR.
--- NOTE | 2022-11-03 22:29 | NUR ---
DID NOT ADMINISTER LASIX TO PATIENT DUE TO DECREASED BP. INFORMED MORTGAGE PROCESSING MANAGER TOBI AND CHARGE NURSE AMBROCIO OF NON ADMINISTRATION.
--- NOTE | 2022-11-04 00:30 | NUR ---
PATIENT STATES A PAIN LEVEL OF 7/10 IN LOWER EXTREMITIES STARTING AT THE ANKLE AND RADIATING TO THE FOOT. ELEVATED BOTH EXTREMITIES AND ADMINISTERED 2 TABLETS OF NORCO 5/325 MG PO PRN. PT TOLERATED WELL. WILL PERFORM PAIN REASSESSMENT IN ONE HOUR.
--- NOTE | 2022-11-04 01:29 | NUR ---
PATIENT REPORTS A PAIN LEVEL OF 0/10. WILL CONTINUE TO MONITOR.
--- NOTE | 2022-11-04 02:10 | NUR ---
WHEN DOING ROUNDS PATIENT WAS FOUND EXITING THE RESTROOM NO LONGER IN HIS HOSPITAL GOWN BUT IN HIS STREET CLOTHES. PATIENT STATED HE NO LONGER WANTED TO STAY AT THIS HOSPITAL AND WANTED TO LEAVE AGAINST MEDICAL ADVISE. EDUCATED THE PATIENT ABOUT THE RISKS OF LEAVING AMA AND WITHOUT SEEING HIS PHYSICIAN FIRST, BUT PATIENT STILL STATED HE WANTED TO LEAVE AND THAT HE WILL SEE HIS PRIMARY CARE PROVIDER INSTEAD. PATIENT VERBALIZED UNDERSTANDING THAT BY SIGNING THE AMA FORM THE HOSPITAL IS NOT RESPONSIBLE FOR ANYTHING THAT SHOULD HAPPEN TO HIM. PATIENT SIGNED AMA FORM AND LEFT THE FACILITY AT 0205. OBSTETRICS TEACHER WAS MADE AWARE. WILL INFORM THE PATIENTS ATTENDING PHYSICIAN IN THE MORNING.
== END 2022-11-04 02:05 | disposition left against medical advice (07) | DRG 194 ==
LOC: MED 01:50 → MTU 06:42
PROVIDERS: ADMIT Internal Medicine; ATTEND Internal Medicine
DX: I11.0 Hypertensive heart disease with heart failure (principal); J96.01 Acute respiratory failure with hypoxia; R65.11 Systemic inflammatory response syndrome (SIRS) of non-infectious origin with acute organ dysfunction; I50.23 Acute on chronic systolic (congestive) heart failure; I24.8 Other forms of acute ischemic heart disease; E11.9 Type 2 diabetes mellitus without complications; I27.20 Pulmonary hypertension, unspecified; Z20.822 Contact with and (suspected) exposure to COVID-19; F15.10 Other stimulant abuse, uncomplicated; Z53.29 Procedure and treatment not carried out because of patient's decision for other reasons; Z59.00 Homelessness unspecified; Z83.3 Family history of diabetes mellitus; Z84.89 Family history of other specified conditions; Z83.49 Family history of other endocrine, nutritional and metabolic diseases; Z82.3 Family history of stroke; Z82.49 Family history of ischemic heart disease and other diseases of the circulatory system; Z91.148 Patient's other noncompliance with medication regimen for other reason
CPT/HCPCS: 36415; 71045; 80048; 80053; 80305; 81001; 82948; 83690; 83735; 83880; 84484; 85025; 87081; 96372; 96374; 99285; J1120; J1650; J1815; J1940; J3475; Q0092

== ENCOUNTER 2023-02-18 15:28 | Inpatient (IN) | payer MEDICAID ==
[~2023-02-18] VITALS: Ht 165.1 cm; Wt 80.9 kg
[2023-02-18 15:41] VITALS: BP 136/96; PULSE 97; RESP 20; TEMP 96.9; O2SAT 96
[2023-02-18 18:06] LABS: BASOPHILS % (AUTO) 0.9 % (0.0-2.0); EOSINOPHILS % (AUTO) 0.8 % (0.0-4.0); HEMATOCRIT 47.2 % (36-52); HEMOGLOBIN 15.6 g/dL (12.0-18.0); LYMPHOCYTES # (AUTO) 1.7 K/uL (2.0-11.5); MEAN CORPUSCULAR HEMOGLOBIN 29 pg (27-31); MEAN CORPUSCULAR HGB CONC 33 g/dL (33-37); MEAN CORPUSCULAR VOLUME 88.7 fL (80-94); MONOCYTES # (AUTO) 0.4 K/uL (0.8-1.0); NEUTROPHILS % (AUTO) 58.3 % (42.2-75.2); PLATELET COUNT (AUTO) 183 K/uL (140-450); RED BLOOD CELL COUNT(AUTO) 5.31 MIL/uL (4.20-6.10); WHITE BLOOD COUNT (AUTO) 5.2 K/uL (4.8-10.8)
[2023-02-18 18:22] LABS: ALBUMIN 2.2 g/dL (3.4-5.0); ANION GAP 12.3 (8-16); CALCIUM 7.8 mg/dL (8.5-10.1); CARBON DIOXIDE 23.6 mmol/L (21-32); CREATININE 0.9 mg/dL (0.6-1.3); POTASSIUM 3.9 mmol/L (3.5-5.1); TOTAL PROTEIN, SERUM 5.7 g/dL (6.4-8.2)
[2023-02-18] MEDS ORDERED: ASPIRIN 81 MG TAB.CHEW PO ONE (18:35)
[2023-02-18] MEDS ORDERED: FUROSEMIDE 20 MG/2 ML VIAL IVP ONE (18:35)
[2023-02-18 18:46] VITALS: O2SAT 96
[2023-02-18] MEDS ORDERED: ZOLPIDEM 5 MG TAB PO PRN (20:50)
[2023-02-18] MEDS ORDERED: HYDROcodone/APAP 7.5/325 MG 1 TAB PO PRN (20:50)
[2023-02-18] MEDS ORDERED: ACETAMINOPHEN 325 MG TAB PO PRN (20:50)
[2023-02-18] MEDS ORDERED: POTASSIUM CHLORIDE 10 MEQ TABER PO PRN (20:50)
[2023-02-18] MEDS ORDERED: DOCUSATE SODIUM 100 MG GELCAP PO PRN (20:50)
[2023-02-18] MEDS ORDERED: guaiFENesin DM 200/20 MG-10 ML 10 ML UDC PO PRN (20:50)
[2023-02-18] MEDS ORDERED: ONDANSETRON 4 MG/2 ML VIAL IM/IVP PRN (20:50)
[2023-02-18] MEDS ORDERED: ATORVASTATIN 20 MG TAB PO SCH (21:00)
[2023-02-18] MEDS ORDERED: INSULIN LISPRO SLIDING SCALE 100 UNITS/ML VIAL SUBQ PRN (21:00)
[2023-02-18] MEDS ORDERED: DEXTROSE 50% 50 ML SYR IVP PRN (21:00)
[2023-02-18] MEDS ORDERED: BLOOD GLUCOSE MONITORING 1 DEV DEV FS SCH (21:00)
[2023-02-18 21:31] LABS: AMPHETAMINE, URINE POSITIVE ng/ml (NEG <=1000); BARBITURATE, URINE NEGATIVE ng/ml (NEG <=200); BENZODIAZEPINE, URINE NEGATIVE ng/mL (NEG <=200); CANNABINOID, URINE NEGATIVE ng/mL (NEG <=50); COCAINE, URINE NEGATIVE ng/mL (NEG <=300); OPIATE, URINE NEGATIVE ng/mL (NEG <=2000); PHENCYCLIDINE SCREEN,URINE NEGATIVE ng/mL (NEG <=25)
[2023-02-18] MEDS ORDERED: ASPI-1822 PO (21:52)
[2023-02-18 22:04] LABS: INR 1.08 (0.8-1.2); PROTHROMBIN TIME 11.3 secs (10.8-13.4)
[2023-02-18 22:13] VITALS: BP 132/76; PULSE 85; RESP 18; TEMP 98.2; O2SAT 98
[2023-02-19] MEDS ORDERED: FUROSEMIDE 40 MG/4 ML VIAL IVP SCH (09:00)
[2023-02-19] MEDS ORDERED: ASPIRIN 81 MG TAB.CHEW PO SCH (09:00)
[2023-02-19] MEDS ORDERED: PANTOPRAZOLE 40 MG TABEC PO SCH (09:00)
[2023-02-19] MEDS ORDERED: GABAPENTIN 300 MG CAP PO SCH (17:00)
== END 2023-02-19 00:14 | disposition left against medical advice (07) | DRG 190 ==
LOC: MED 15:28 → MTU 20:54
PROVIDERS: ADMIT Student in an Organized Health Care Education/Training Program; ATTEND Student in an Organized Health Care Education/Training Program
DX: I21.4 Non-ST elevation (NSTEMI) myocardial infarction (principal); I11.0 Hypertensive heart disease with heart failure; I50.9 Heart failure, unspecified; Z53.29 Procedure and treatment not carried out because of patient's decision for other reasons; Z20.822 Contact with and (suspected) exposure to COVID-19; Z79.899 Other long term (current) drug therapy; Z79.82 Long term (current) use of aspirin
CPT/HCPCS: 36415; 70450; 71045; 80053; 80305; 82948; 83880; 84484; 85025; 85610; 85730; 93005; 93970; 93971; 96372; 96374; 99285; J1940

== ENCOUNTER 2023-02-18 23:50 | Inpatient (IN) | payer MEDICAID ==
[~2023-02-18] VITALS: Ht 162.6 cm; Wt 72.6 kg
[2023-02-18 23:50] VITALS: BP 130/94; PULSE 100; RESP 20; TEMP 97.3; O2SAT 94
[~2023-02-18 23:50] MED LIST changes: +ASPI-1822 PO
[2023-02-19] VITALS (7 sets, daily range): BP systolic 112–153; BP diastolic 64–87; PULSE 74–91; RESP 16–18; TEMP 97–98; O2SAT 94–100
[2023-02-19] MEDS ORDERED: ACETAMINOPHEN EXTRA STRENGTH 500 MG TAB PO ONE (02:40)
[2023-02-19] MEDS ORDERED: DEXTROSE 50% 50 ML SYR IVP PRN (04:45)
[2023-02-19] MEDS: BLOOD GLUCOSE MONITORING 1 DEV DEV FS SCH ×4 (06:33→21:00)
[2023-02-19] MEDS: INSULIN LISPRO SLIDING SCALE 100 UNITS/ML VIAL SUBQ PRN ×3 (06:36→22:01)
[2023-02-19] MEDS ORDERED: POTASSIUM CHLORIDE 10 MEQ TABER PO PRN (08:00)
[2023-02-19] MEDS ORDERED: MAG SULF 2000 MG/WATER PREMIX 50 ML IV PRN (08:00)
[2023-02-19] MEDS ORDERED: ACETAMINOPHEN 325 MG TAB PO PRN (08:00)
[2023-02-19] MEDS ORDERED: MORPHINE SULFATE 2 MG/ML SYR IVP PRN (08:00)
[2023-02-19] MEDS ORDERED: ONDANSETRON 4 MG/2 ML VIAL IVP PRN (08:00)
[2023-02-19] MEDS ORDERED: ZOLPIDEM 10 MG TAB PO PRN (08:00)
[2023-02-19] MEDS ORDERED: DOCUSATE SODIUM 100 MG GELCAP PO PRN (08:00)
[2023-02-19] MEDS ORDERED: LORazepam 2 MG/ML VIAL IVP PRN (08:00)
[2023-02-19] MEDS: FUROSEMIDE 40 MG/4 ML VIAL IVP SCH ×2 (08:45→17:00)
[2023-02-19] MEDS: carvediloL 3.125 MG TAB PO SCH ×2 (08:47→20:35)
[2023-02-19] MEDS ORDERED: ATORVASTATIN 20 MG TAB PO SCH (09:00)
[2023-02-19] MEDS ORDERED: ASPIRIN 81 MG TAB.CHEW PO SCH (09:00)
[2023-02-19] MEDS ORDERED: lisinopriL 5 MG TAB PO SCH (09:00)
[2023-02-19] MEDS ORDERED: LOVENOX 1MG/KG Q12H SUBQ SCH (10:25)
[2023-02-19] MEDS: ENOXAPARIN 80 MG/0.8 ML SYR SUBQ SCH ×2 (10:34→20:42)
== END 2023-02-19 21:55 | disposition left against medical advice (07) | DRG 190 ==
LOC: MED 23:50 → MTU 02-19 04:16
PROVIDERS: ADMIT Student in an Organized Health Care Education/Training Program; ATTEND Student in an Organized Health Care Education/Training Program
DX: I21.4 Non-ST elevation (NSTEMI) myocardial infarction (principal); N17.0 Acute kidney failure with tubular necrosis; I50.23 Acute on chronic systolic (congestive) heart failure; E43 Unspecified severe protein-calorie malnutrition; E83.51 Hypocalcemia; I27.20 Pulmonary hypertension, unspecified; E78.5 Hyperlipidemia, unspecified; I11.0 Hypertensive heart disease with heart failure; E83.42 Hypomagnesemia; Z79.899 Other long term (current) drug therapy; Z79.82 Long term (current) use of aspirin; Z83.3 Family history of diabetes mellitus; Z82.3 Family history of stroke; Z82.49 Family history of ischemic heart disease and other diseases of the circulatory system; Z68.27 Body mass index [BMI] 27.0-27.9, adult
CPT/HCPCS: 36415; 82948; 84484; 87081; 93005; 99285; J1650; J1815; J1940

== ENCOUNTER 2023-03-05 17:24 | Emergency (ER) | payer MEDICAID ==
[~2023-03-05] VITALS: Ht 172.7 cm; Wt 82.6 kg
[~2023-03-05 17:24] MED LIST changes: -ATOR20TA40 PO; -BLOO1EAC40 MC; -GABA-638 PO; -LANC1COM MC; -SITA100T8 PO
[2023-03-05 17:37] VITALS: TEMP 97.7
== END 2023-03-05 17:35 ==
LOC: MED 17:24
DX: I46.9 Cardiac arrest, cause unspecified (principal); Z79.899 Other long term (current) drug therapy
CPT/HCPCS: 31500; 92950; 94667; 99291